=== PATIENT | female | born 1990 | race African-American/Black ===

== ENCOUNTER 2020-07-04 13:22 | Emergency (ER) | payer OTHER, SELFPAY ==
--- NOTE | ~2020-07-04 | US_ITS ---
EXAMINATION: US pelvic complete w TV DATE: 07/04/2020 17:09 INDICATION: Left lower pelvic pain. TECHNIQUE: Multiple transabdominal and endovaginal sonographic images of the pelvis were obtained. COMPARISON: CT dated 07/04/2020 FINDINGS: The uterus measures 8.9 x 5.8 x 5.2 cm. The endometrial complex measures 7 mm in thickness. The righ t ovary measures 2.5 x 3.4 x 2.8 cm. 3.3 cm anechoic right ovarian cyst. The left ovary measures 3.0 x 2.3 x 2.4 cm. There is normal vascular flow in the ovaries with both arterial and venous waveforms identified at the left ovary. There is a small amount of free fluid in the pelvis. IMPRESSION: 1. Normal left ovary with arterial and venous waveforms on color Doppler. 2. 3.3 cm right ovarian cyst. Reviewed, dictated and finalized at location A. EE CLERK
--- NOTE | ~2020-07-04 | CT_ITS ---
EXAMINATION: CT abdomen pelvis w con DATE: 07/04/2020 15:35 INDICATION: Left lower quadrant abdominal pain. TECHNIQUE: Computed tomography (CT) of the abdomen and pelvis was performed with 100 mL Omnipaque 350 intravenous contrast. Automated exposure control and iterative reconstruction technique were employe d. The dose-length product was 353.66 mGy-cm. COMPARISON: None. FINDINGS: The visualized portions of the lung bases are clear without pneumonia or pleural effusion. The heart size is normal. No pericardial effusion. There are bilateral breast implants. The liver, ga llbladder, spleen, pancreas, adrenal glands, and left kidney are normal. There is a 2 mm stone in rig ht kidney. There are no dilated loops of bowel. There is fat stranding in left lower quadrant adjacen t to the left ovary and sigmoid colon. There is a 2.1 cm involuting cyst in left ovary. The appendix is not visualized. The left ovarian vein is enlarged, consistent with pelvic venous insufficiency. Th ere are no pathologically enlarged lymph nodes. There is a small volume of pelvic ascites. There is d extrocurvature of thoracolumbar spine. IMPRESSION: 1. Fat stranding in left lower quadrant adjacent to the left ovary and sigmoid colon, consistent with inflammation, most likely from a ruptured left ovarian cyst. 2. Pelvic venous insufficiency. Reviewed, dictated and finalized at location A. ETING PROJECT MANAGER IMPRESSION: 1. Fat stranding in left lower quadrant adjacent to the left ovary and sigmoid colon, consistent with inflammation, most likely from a ruptured left ovarian c yst. 2. Pelvic venous insufficiency.
[2020-07-04 13:35] VITALS: BP 104/72; PULSE 104; RESP 16; TEMP 36.4; O2SAT 99
--- NOTE | 2020-07-04 13:58 | ED.ABDPAIN ---
HPI - Abdominal Pain General Chief Complaint: Abdominal Pain Stated Complaint: low abd pain Time Seen by Provider: 07/04/20 13:50 Source: patient, RN notes reviewed and old records reviewed History of Present Illness HPI narrative: 29-year-old female presents to emergency department for intermittent left lower quadrant pain for the past month, worse the past 3 days. Patient has not taken anything for the pain so far. Denies , as she is currently on her menstrual cycle. No urinary symptoms. Patient states she is having normal bowel movements. No chest pain or shortness of breath. Related Data Allergies Allergy/AdvReac Type Severity Reaction Status Date / Time No Known Allergies Allergy Verified 07/04/20 14:14 Review of Systems Review of Systems: Narrative: CONSTITUTIONAL: Denies fever, chills, or sweats. EYES: Denies visual changes, redness, or discharge. ENT: Denies rhinorrhea, congestion, sore throat, or otalgia. CARDIOVASCULAR: Denies chest pain, palpitations, or edema. RESPIRATORY: Denies cough or dyspnea. GASTROINTESTINAL: Reports abdominal pain and nausea. No vomiting GENITOURINARY: Denies dysuria or hematuria. SKIN: Denies rash or itching. MUSCULOSKELETAL: Denies back pain, joint pain, or myalgia. NEUROLOGIC: Denies headache, numbness, dizziness, or weakness. PSYCHIATRIC: Denies anxiety or depression. All systems reviewed & are unremarkable except as noted in HPI and below (ROS) Exam Narrative: Exam Narrative: GENERAL: Well-appearing, well-nourished, and in no acute distress. HEAD: Normocephalic, atraumatic. EYES: PERRLA and EOMI. ENT: Nares clear, no rhinorrhea or epistaxis. Mucous membranes moist. NECK: Supple. CHEST: Clear to auscultation. No respiratory distress. HEART: Regular rate and rhythm. No murmur heard. Normal peripheral pulses. ABDOMEN: Soft, nondistended, normal active bowel sounds. Mild left lower quadrant TTP EXTREMITIES: Normal range of motion. No edema. SKIN: Warm, dry, no rash. NEURO: No focal deficits. Alert and oriented x3. PSYCH: Normal mood and affect. Course Reevaluation(s) Reevaluation #1: 162 -reevaluated patient, pain improved. 1914 -reevaluated patient, pain improved. Pain likely due to ruptured ovarian cyst. Counseled patient to take Tylenol or Motrin/ibuprofen as needed for pain. Follow-up with a medical provider within 1 week. Return to emergency department if symptoms persist, worsen, or other concerns. Vital Signs Vital signs: Vital Signs Temperature 36.4 C 07/04/20 13:35 Pulse Rate 104 H 07/04/20 13:35 Respiratory Rate 16 07/04/20 13:35 Blood Pressure 104/72 07/04/20 13:35 Pulse Oximetry 99 07/04/20 13:35 Temperature 36.4 C 07/04/20 14:00 Pulse Rate 65 07/04/20 18:47 Respiratory Rate 16 07/04/20 14:00 Blood Pressure 138/78 07/04/20 18:47 Pulse Oximetry 98 07/04/20 18:47 MDM - Abdominal Pain Medical Records Attestation: I reviewed the patient's medical records. Lab Data Attestation: I reviewed the patient's lab results. Result diagrams: 07/04/20 14:21 07/04/20 14:21 Labs: Lab Results 07/04/20 07/04/20 Range/Units 14:21 14:21 WBC 7.8 (4.5-10.0) K/mm3 RBC 4.45 (4.2-5.4) M/mm3 Hgb 13.4 (12.0-15.0) g/dL Hct 40.8 (37.0-47.0) % MCV 91.7 (80-100) fl MCH 30.1 (26-34) pg MCHC 32.8 (32-36) g/dl RDW 13.0 (11.5-14.5) % Plt Count 311 (150-375) k/mm3 MPV 10.0 (7.4-10.4) fl Immature Gran % (Auto) 0.3 (0-0.5) % Neut % (Auto) 56.1 (45.5-73.1) % Lymph % (Auto) 23.7 (18.3-44.2) % [place] % (Auto) 9.2 H (2.6-8.5) % Eos % (Auto) 10.2 H (0-4.4) % Baso % (Auto) 0.5 (0.2-1.2) % Lymph # (Auto) 1.85 (0.9-3.2) K/mm3 [place] # (Auto) 0.7 H (0.1-0.6) K/mm3 Eos # (Auto) 0.8 H (0-0.3) K/mm3 Baso # (Auto) 0.0 (0.0-0.1) K/mm3 Abs Immat Gran (auto) 0.02 (0.00-0.031) K/mm3 Absolute Neuts (auto) 4.4 (1.3-6.7) K/mm3 Absolute Nucle
[2020-07-04 14:00] VITALS: BP 104/72; PULSE 104; RESP 16; TEMP 36.4; O2SAT 99
[2020-07-04 14:36] LABS: Basophils Percent Auto 0.5 % (0.2-1.2); Eosinophils Absolute Auto 0.8 K/mm3 (0-0.3); Eosinophils Percent Auto 10.2 % (0-4.4); Hematocrit 40.8 % (37.0-47.0); Hemoglobin 13.4 g/dL (12.0-15.0); Immature Granulocyte Absolute 0.02 K/mm3 (0.00-0.031); Immature Granulocyte Percent A 0.3 % (0-0.5); Lymphocytes Absolute Auto 1.85 K/mm3 (0.9-3.2); Lymphocytes Percent Auto 23.7 % (18.3-44.2); Mean Corpuscular HGB Conc 32.8 g/dl (32-36); Mean Corpuscular Hemoglobin 30.1 pg (26-34); Mean Corpuscular Volume 91.7 fl (80-100); Monocytes Absolute Auto 0.7 K/mm3 (0.1-0.6); Monocytes Percent Auto 9.2 % (2.6-8.5); Neutrophils Absolute Auto 4.4 K/mm3 (1.3-6.7); Neutrophils Percent Auto 56.1 % (45.5-73.1); Platelet Count Result 311 k/mm3 (150-375); Red Blood Count 4.45 M/mm3 (4.2-5.4); White Blood Count 7.8 K/mm3 (4.5-10.0)
[2020-07-04 14:45] LABS: Alanine Aminotransferase 13 U/L (4-35); Albumin Level 4.3 g/dL (3.5-5.1); Alkaline Phosphatase 61 U/L (38-126); Anion Gap 7 mmol/L (8-16); Aspartate Amino Transferase 23 U/L (14-36); Bilirubin,Total 0.6 mg/dL (0.2-1.3); Blood Urea Nitrogen 10 mg/dL (7-17); Calcium 9.5 mg/dL (8.4-10.2); Carbon Dioxide 29 mmol/L (22-30); Chloride 101 mmol/L (98-107); Estimated CRCL calculation 62 ml/min; Estimated Glomerular Filt Rate > 60; Glucose 94 mg/dL (65-105); Lipase 68 U/L (23-300); Potassium 3.8 mmol/L (3.4-5.0); Sodium 137 mmol/L (137-145)
[2020-07-04 18:47] VITALS: BP 138/78; PULSE 65; O2SAT 98
[2020-07-04] MEDS: KETOROLAC 30 MG/ML VIAL (*BKC) IV PUSH (19:22)
== END 2020-07-04 19:39 | disposition home or self-care (01) ==
PROVIDERS: Emergency Provider Emergency Medicine
DX: N83.202 Unspecified ovarian cyst, left side (principal); N83.201 Unspecified ovarian cyst, right side; I87.2 Venous insufficiency (chronic) (peripheral)
CPT/HCPCS: 36415; 74177; 76830; 76856; 80053; 81025; 83690; 85025; 96374; 99284; J1885; Q9967